=== PATIENT | male | born 1975 | race Caucasian/White ===

== ENCOUNTER 2017-09-24 17:35 | Emergency (ER) | payer BC, OTHER ==
--- NOTE | 2017-09-24 19:16 | UC ---
Eye Complaint HPI - HPI Summary HPI Summary: 42 year old male presents with complains right eye redness/swelling after taking out her contact lens. - History of Current Complaint Stated Complaint: EYE COMPLAINT Time Seen by Provider: 09/24/17 19:16 Hx Obtained From: Patient Onset/Duration: Sudden Onset Timing: Constant Severity Initially: Moderate Severity Currently: Moderate - Allergies/Home Medications Allergies/Adverse Reactions: Allergies Allergy/AdvReac Type Severity Reaction Status Date / Time Penicillins Allergy Unknown Verified 09/24/17 19:20 Reaction Details PMH/Surg Hx/FS Hx/Imm Hx Previously Healthy: Yes Review of Systems Constitutional: Negative Skin: Negative Eyes: Drainage, Eye Redness ENT: Negative Respiratory: Negative Cardiovascular: Negative Gastrointestinal: Negative Genitourinary: Negative Motor: Negative Neurovascular: Negative Musculoskeletal: Negative Neurological: Negative Psychological: Negative All Other Systems Reviewed And Are Negative: Yes Physical Exam Triage Information Reviewed: Yes Vital Signs Reviewed: Yes Eyes: Positive: Conjunctiva Inflamed, Discharge ENT Exam: Normal Dental Exam: Normal Neck exam: Normal Neck: Positive: 1 Respiratory Exam: Normal Cardiovascular Exam: Normal Abdominal Exam: Normal Musculoskeletal Exam: Normal Neurological Exam: Normal Psychological Exam: Normal Skin Exam: Normal Eye Complaint Course/Dx - Differential Dx/Diagnosis Provider Diagnoses: right eye redness/swelling/discharge Discharge - Discharge Plan Condition: Stable Disposition: HOME Prescriptions: Ciprofloxacin 0.3% OPTH.GRISEL* [Cipro 0.3% Opth*] 2 drop RIGHT EYE Q4H #1 btl DOXYcycline CAP(*) [DOXYcycline 100MG CAP(*)] 100 mg PO BID #14 cap Methylprednisolone [Medrol Dosepak 4 MG*] 4 mg PO .SEE LISSET INSTRUCTION #21 tab Patient Education Materials: Conjunctivitis (ED) Referrals: Chino Orozco MD [Medical Doctor] - No Primary Care Phys,NOPCP [Primary Care Provider] -
[2017-09-24 19:20] VITALS: BP 147/97
== END 2017-09-24 19:39 | disposition home or self-care (01) ==
LOC: UCCORT 17:35
DX: H57.8 Other specified disorders of eye and adnexa (principal); Z88.0 Allergy status to penicillin
CPT/HCPCS: 99202; G0463